=== PATIENT | female | born 1955 | race Caucasian/White ===

== ENCOUNTER 2019-04-07 13:42 | Emergency (ER) | payer MEDICARE, OTHER ==
[~2019-04-07] VITALS: Wt 56.0 kg
[~2019-04-07 13:42] MED LIST: ACET-818; ATOR10TA23; BENA40TA56; CARI350T; DIPH-387; DIVA500T33; ESTR1TAB79; IBUP-1544; LAMO25TA6; LEVO25TA9; RTPRO5; TOPI100T; TRAM50TA2; TRIH5TAB; ZIPR60CA2
[2019-04-07 13:50] VITALS: RESP 18
[2019-04-07] MEDS ORDERED: LORAZEPAM 1 MG TAB PO ONE (14:30)
[2019-04-07] MEDS ORDERED: ACETAMINOPHEN 325 MG TAB PO ONE (14:30)
[2019-04-07] MEDS ORDERED: ACET500C5 PO (16:33)
[2019-04-07 16:40] VITALS: BP 129/74; PULSE 70
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
== END 2019-04-07 16:41 | disposition home or self-care (01) ==
LOC: FTE 13:42
DX: M25.521 Pain in right elbow (principal); M25.561 Pain in right knee; M54.2 Cervicalgia; I10 Essential (primary) hypertension
CPT/HCPCS: 72040; 73562

== ENCOUNTER 2019-04-26 10:49 | Emergency (ER) | payer MEDICARE, OTHER ==
[~2019-04-26] VITALS: Ht 157.5 cm; Wt 46.3 kg
[~2019-04-26 10:49] MED LIST changes: +ACET500C5 PO
[2019-04-26 10:53] VITALS: BP 186/94; RESP 18; Ht 157.5 cm; Wt 46.3 kg
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
[2019-04-26] MEDS ORDERED: TRAM50TA2 PO (11:58)
[2019-04-26] MEDS ORDERED: traMADol 50 MG TAB PO ONE (12:00)
[2019-04-26] MEDS ORDERED: CARI350T PO (12:09)
[2019-04-26] MEDS ORDERED: CARISOPRODOL 350 MG TAB PO ONE (12:30)
[2019-04-26 13:03] VITALS: PULSE 90
== END 2019-04-26 13:04 | disposition home or self-care (01) ==
LOC: FTE 10:49
DX: G62.9 Polyneuropathy, unspecified (principal); I10 Essential (primary) hypertension; E03.9 Hypothyroidism, unspecified
CPT/HCPCS: 99283

== ENCOUNTER 2019-05-10 20:39 | Emergency (ER) | payer MEDICARE, OTHER ==
[~2019-05-10] VITALS: Ht 160 cm; Wt 46.4 kg
[~2019-05-10 20:39] MED LIST changes: +CARI350T PO; +TRAM50TA2 PO
[2019-05-10 20:42] VITALS: Ht 160 cm; Wt 46.4 kg
[2019-05-11] MEDS ORDERED: ACETAMINOPHEN 325 MG TAB PO ONE
[2019-05-11] MEDS ORDERED: HYDROCODONE/APAP (5/325) TAB PO ONE (00:30)
[2019-05-11] MEDS ORDERED: ACET-141 PO (03:34)
[2019-05-11] MEDS ORDERED: IBUP-1561 PO (03:34)
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
[2019-05-11 03:45] VITALS: BP 164/98; PULSE 80; RESP 16
== END 2019-05-11 03:46 | disposition home or self-care (01) ==
LOC: FTE 20:39
DX: M79.604 Pain in right leg (principal)
CPT/HCPCS: 73550